=== PATIENT | male | born 2000 | race Caucasian/White ===

== ENCOUNTER 2024-10-18 03:26 | Emergency (ER) | payer OTHER ==
[~2024-10-18] VITALS: Ht 182.9 cm; Wt 93.5 kg
[2024-10-18] MEDS ORDERED: SERT-141 PO (03:39)
[2024-10-18] MEDS ORDERED: tadalafil PO (03:39)
[2024-10-18 04:04] LABS: BASO # 0.1 10^3/uL (0.0-0.2); BASO % 0.5 % (0.0-1.0); EOS # 0.1 10^3/uL (0.0-0.5); EOS % 1.0 % (0.0-3.0); LYMPH # 1.6 10^3/uL (1.5-5.0); LYMPH % 13.7 % (24.0-44.0); MONO # 1.1 10^3/uL (0.0-0.8); MONO % 9.3 % (2.0-8.0); NEUTROPHILS # 8.9 10^3/uL (1.5-8.5); NEUTROPHILS % 75.2 % (36.0-66.0); PLATELET COUNT, AUTOMATED 298 10^3/uL (150-450)
[2024-10-18 04:21] LABS: INR 0.96
[2024-10-18 04:37] LABS: CK-MB VALUE MASS 3.7 NG/ML (<3.6)
[2024-10-18 04:39] LABS: ALT/SGPT 41 U/L (7.0-40); AST/SGOT 38 U/L (<34); CALCIUM LEVEL 10.0 MG/DL (8.5-10.1); CARBON DIOXIDE LEVEL 30 MMOL/L (20-31); CHLORIDE LEVEL 102 MMOL/L (98-107); CREATININE FOR GFR 1.00 MG/DL (0.70-1.30); GLOMERULAR FILTRATION RATE > 90.0 (>60); POTASSIUM SERUM 4.6 MMOL/L (3.5-5.1); SODIUM LEVEL 141 MMOL/L (136-145)
[2024-10-18 05:09] LABS: CPK CREATINE PHOSPHOKINASE 289 U/L (46-171); MB/CK RELATIVE INDEX 1.28 (< OR =4)
[2024-10-18] MEDS: PANTOPRAZOLE 40MG VIAL IV ONE (06:33)
[2024-10-18] MEDS: KETOROLAC 30 MG/ML 1 ML VIAL IV ONE (07:28)
[2024-10-18 08:15] VITALS: BP 134/78; TEMP 98.6; O2SAT 100
== END 2024-10-18 08:17 | disposition home or self-care (01) ==
LOC: M ED 03:26
DX: R07.89 Other chest pain (principal); J45.909 Unspecified asthma, uncomplicated; M54.50 Low back pain, unspecified; Z79.899 Other long term (current) drug therapy
CPT/HCPCS: 71045; 80053; 82248; 82550; 82553; 83690; 84484; 85025; 85610; 93005; 96374; 96375; 99284; J1885; J2470